=== PATIENT | female | born 1985 | race Caucasian/White ===

== ENCOUNTER 2017-02-21 05:35 | Day surgery (SDC) | payer OTHER ==
[~2017-02-21] VITALS: Ht 165.1 cm; Wt 54.4 kg
[~2017-02-21 05:35] MED LIST: MIRENA1 EACH IY; MOTRIN800 MG PO
[2017-02-21 06:33] VITALS: BP 103/67
[2017-02-21] MEDS ORDERED: PERCOCET 5/31 TABLET PO (08:50)
[2017-02-21] MEDS ORDERED: COLACE100 MG PO (08:50)
[2017-02-21 10:15] VITALS: BP 107/53
[2017-02-21 11:13] VITALS: BP 100/60
== END 2017-02-21 11:18 | disposition home or self-care (01) ==
LOC: SDC 05:35
PROC: 0JB90ZZ Excision of Buttock Subcutaneous Tissue and Fascia, Open Approach (ICD-10-PCS; principal; 2017-02-21)
DX: L05.01 Pilonidal cyst with abscess (principal)
CPT/HCPCS: 88304; C1781; J0131; J0690; J1100; J1885; J2250; J2405; J2710; J3010